=== PATIENT | male | born 1940 | race Caucasian/White ===

== ENCOUNTER 2016-11-18 12:09 | Outpatient (CLI) | payer MEDICARE, BC ==
[2015-01-12 19:01] VITALS: O2SAT 89
== END 2016-11-18 12:10 | disposition home or self-care (01) | DRG 554 ==
LOC: CONVCARE 12:09
PROVIDERS: ATTEND Orthopaedic Surgery
DX: M12.9 Arthropathy, unspecified (principal)
CPT/HCPCS: 73030

== ENCOUNTER 2017-06-23 10:51 | Outpatient (CLI) | payer MEDICARE, BC ==
[2015-01-12 19:01] VITALS: O2SAT 89
== END 2017-06-23 10:52 | disposition home or self-care (01) | DRG 561 ==
LOC: CONVCARE 10:51
PROVIDERS: ATTEND Orthopaedic Surgery
DX: Z47.1 Aftercare following joint replacement surgery (principal); Z96.611 Presence of right artificial shoulder joint
CPT/HCPCS: 73030

== ENCOUNTER 2017-07-21 12:56 | Outpatient (CLI) | payer MEDICARE, BC ==
[2015-01-12 19:01] VITALS: O2SAT 89
== END 2017-07-21 12:57 | disposition home or self-care (01) | DRG 561 ==
LOC: CONVCARE 12:56
PROVIDERS: ATTEND Orthopaedic Surgery
DX: Z47.1 Aftercare following joint replacement surgery (principal); Z96.611 Presence of right artificial shoulder joint
CPT/HCPCS: 73030

== ENCOUNTER 2017-12-22 11:43 | Outpatient (CLI) | payer MEDICARE, BC ==
[2015-01-12 19:01] VITALS: O2SAT 89
== END 2017-12-22 11:44 | disposition home or self-care (01) | DRG 566 ==
LOC: RAD 11:43
PROVIDERS: ATTEND Orthopaedic Surgery
DX: Z96.611 Presence of right artificial shoulder joint (principal); Z51.89 Encounter for other specified aftercare
CPT/HCPCS: 73030

== ENCOUNTER 2018-07-21 06:00 | Day surgery (SDC) | payer MEDICARE, BC ==
[~2018-07-21 06:00] MED LIST: ACETAZOLAMIDE 250 MG PO ONE
[2018-07-21] MEDS: TETRACAINE HCL 0.5 % 1 DROP SOL ONE ×3 (06:19→07:42)
[2018-07-21] MEDS: KETOROLAC 0.5% OPTH 60 DROP SOL ONE ×2 (06:20→06:32)
[2018-07-21] MEDS: CYCLOPENTOLATE 1% SOL ONE ×2 (06:20→06:32)
[2018-07-21] MEDS: PHENYLEPHRINE HCL 10% OPHTHAL SOL ONE ×2 (06:20→06:32)
[2018-07-21 06:25] VITALS: TEMP 97.3
[2018-07-21] MEDS ORDERED: IMPRIMIS ONE (07:06)
[2018-07-21] MEDS ORDERED: BSS 500 ML 500 ML IR ONE (07:06)
[2018-07-21] MEDS ORDERED: FENTANYL 100MCG/2ML SOL ONE (07:40)
[2018-07-21] MEDS ORDERED: MIDAZOLAM 2 MG/2 ML SOL ONE (07:40)
[2018-07-21] MEDS: POVIDONE IODINE 5% SOL ONE ×2 (07:42→07:59)
[2018-07-21] MEDS: LIDOCAINE HCL 1% MPF 30 SOL ONE ×2 (07:43→07:48)
[2018-07-21] MEDS ORDERED: POVIDONE IODINE 5% SOL ONE (07:47)
[2018-07-21 08:08] VITALS: BP 110/68; PULSE 60; RESP 20; O2SAT 91
== END 2018-07-21 08:29 | disposition home or self-care (01) | DRG 125 ==
LOC: SURG 06:00
PROVIDERS: ATTEND Ophthalmology
DX: H25.89 Other age-related cataract (principal)
CPT/HCPCS: J2250; J3010; A9270-GY; J2001

== ENCOUNTER 2018-08-18 06:00 | Day surgery (SDC) | payer MEDICARE, BC ==
[2018-08-18 06:07] VITALS: O2SAT 93
[2018-08-18] MEDS: PHENYLEPHRINE HCL 10% OPHTHAL SOL ONE ×2 (06:10→06:22)
[2018-08-18] MEDS: TETRACAINE HCL 0.5 % 1 DROP SOL ONE ×3 (06:10→07:34)
[2018-08-18] MEDS: CYCLOPENTOLATE 1% SOL ONE ×2 (06:11→06:23)
[2018-08-18] MEDS: KETOROLAC 0.5% OPTH 60 DROP SOL ONE ×2 (06:11→06:23)
[2018-08-18] MEDS ORDERED: IMPRIMIS ONE (06:52)
[2018-08-18] MEDS ORDERED: LIDOCAINE HCL 1% MPF 30 SOL ONE (06:52)
[2018-08-18] MEDS ORDERED: BSS 500 ML 500 ML IR ONE (06:52)
[2018-08-18] MEDS ORDERED: POVIDONE IODINE 5% SOL ONE (06:52)
[2018-08-18] MEDS ORDERED: MIDAZOLAM 2 MG/2 ML SOL ONE (07:02)
[2018-08-18] MEDS ORDERED: FENTANYL 100MCG/2ML SOL ONE (07:02)
[2018-08-18 08:08] VITALS: BP 132/81; PULSE 60; RESP 18; TEMP 97.4
== END 2018-08-18 08:20 | disposition home or self-care (01) | DRG 125 ==
LOC: SURG 06:00
PROVIDERS: ATTEND Ophthalmology
DX: H25.89 Other age-related cataract (principal)
CPT/HCPCS: J2250; J3010; A9270-GY; J2001